=== PATIENT | male | born 1980 | race Caucasian/White ===

== ENCOUNTER 2023-09-07 10:53 | Emergency (ER) | payer SELFPAY ==
[2023-09-07] VITALS (51 sets, daily range): BP systolic 127–172; BP diastolic 82–106; PULSE 58–96; RESP 0–16; TEMP 37.1; O2SAT 100
--- NOTE | 2023-09-07 | DI.CT_ITS ---
Exam(s) CT BRAIN CTA EXAM: CT BRAIN CTA CLINICAL HISTORY: intracranial hemorrhage. TECHNIQUE: Imaging Protocol: Axial CT angiography was performed with multi-slice acquisition and mu lti-planar and/or 3D reconstructions. CONTRAST MATERIAL: Intravenous: Omnipaque 350 contrast volume:85 mL COMPARISON: CT CT HEAD WO from 09/07/2023 FINDINGS: CT Head W: Ventricles and Extra axial spaces: Small amount of intraventricular hemorrhage in the occipital horns of the lateral ventricles. Hemorrhage: The hemorrhage involving the medial aspect of the left temporal lobe, left occipital lobe , spot and splenium is again seen. There is again seen intraventricular hemorrhage in the occipital horns of both lateral ventricles. Cerebral parenchyma: See the above section under hemorrhage. Midline shift: None. Brainstem/Cerebellum: Normal. Calvarium: Normal. Visualized Paranasal sinuses/Mastoids: Clear. Soft Tissues: Unremarkable. Enhancement: Unremarkable. CTA Brain W: Internal Carotid Arteries: No aneurysm, occlusion or significant stenosis. Anterior Cerebral Arteries: Right: No aneurysm, occlusion or significant stenosis. Left: No aneurysm, occlusion or significant stenosis. Middle Cerebral Arteries: Right: No aneurysm, occlusion or significant stenosis. Left: No aneurysm, occlusion or significant stenosis. Posterior cerebral Arteries: Right: No aneurysm, occlusion or significant stenosis. Left: No aneurysm, occlusion or significant stenosis. Vertebral Arteries: Right: No aneurysm, occlusion or significant stenosis. Left: No aneurysm, occlusion or significant stenosis. Basilar Artery: No aneurysm, occlusion or significant stenosis. Venogram: The intracranial venogram is unremarkable. No evidence of a venous thrombosis. IMPRESSION: 1. No evidence of large vessel occlusion or significant stenosis on the CT angiography of the head. 2. Normal intracranial venogram. 3. Findings were discussed with Dr. Ramires at 3:18 p.m. on 09/07/2023. RADIATION DOSE DELIVERED: Total DLP DATA REPOSITORY: All CT scans at this facility are submitted to the National Radiology Data Registry (NRDR) Dose Index Registry (DIR) with the [employer] (A[employer]). RADIATION OPTIMIZATION: All CT scans at this facility use at least one of these dose optimization te chniques: automated exposure control; mA and/or kV adjustment per patient size (includes targeted exa ms where dose is matched to clinical indication); or iterative reconstruction.
--- NOTE | 2023-09-07 11:00 | RT.EKG_ITS ---
APPROVED REPORT Exam: Resting ECG Reason for Exam: chest pressure Patient Location: E HR:69 bpm ECG Measurements Heart Rate 69 AXIS WA 143 P 49 QRSd 99 QRS 5 QT 402 T 31 QTc 430 Conclusion Sinus rhythm...normal P axis, V-rate 60- 99
[2023-09-07 11:23] LABS: Abs Immature Grans 0.01 10^3/uL (0.0-0.06); Absolute Basophil Count 0.03 10^3/uL (0.0-0.2); Absolute Eosinophil Count 0.02 10^3/uL (0.0-0.7); Absolute Lymphocyte Count 1.04 10^3/uL (1.2-3.4); Absolute Monocyte Count 0.49 10^3/uL (0.1-0.8); Absolute Neutrophil Count 2.98 10^3/uL (1.2-6.7); Basophils % 0.7; Eosinophils % 0.4; HCT 43.8 % (40.0-50.0); HGB 15.3 g/dL (13.5-17.5); Immature Grans % 0.2; Lymphocytes % 22.8; MCH 32.3 pg (27.0-33.0); MCHC 34.9 % (32.0-36.0); MCV 93 fL (80-95); MPV 8.1 fL (8.0-11.0); Monocytes % 10.7; Neutrophils % 65.2; Platelet Count 171 10^3/uL (130-400); RBC 4.73 10^6/uL (4.36-5.78); RDW 11.3 % (11.8-14.1); RDW-SD 38.7 fL; WBC 4.57 10^3/uL (4.4-10.8)
[2023-09-07 11:34] LABS: Ammonia < 10 umol/L (11-32)
--- NOTE | 2023-09-07 11:45 | DI.CT_ITS ---
Exam(s) CT HEAD WO EXAM: CT HEAD WO CLINICAL HISTORY: headache, confusion. TECHNIQUE: Imaging Protocol: Axial computed tomography images with coronal and sagittal reformatted images were created and reviewed COMPARISON: No exams were available for comparison FINDINGS: Ventricles and Extra axial spaces: Normal in size and morphology for the patient's age. Please see be low under hemorrhage. Hemorrhage: There is acute hemorrhage seen involving the medial aspect of the left temporal lobe and the left occipital lobe including the splenium of the corpus callosum. There is extension into the v entricular system with hemorrhage seen in both the occipital horns of the lateral ventricles and the 3rd ventricle. Cerebral parenchyma: Please see above under hemorrhage. Midline shift: None. Brainstem/Cerebellum: Normal. Calvarium: Normal. Visualized Paranasal sinuses/Mastoids: Clear. Soft Tissues: Unremarkable. IMPRESSION: 1. Intraparenchymal and intraventricular hemorrhage as described above. No midline shift or mass eff ect. 2. Findings were discussed with Dr. Ramires at 12:30 p.m. on 09/07/2023. RADIATION DOSE DELIVERED: Total DLP DATA REPOSITORY: All CT scans at this facility are submitted to the National Radiology Data Registry (NRDR) Dose Index Registry (DIR) with the [employer] (ACR). RADIATION OPTIMIZATION: All CT scans at this facility use at least one of these dose optimization te chniques: automated exposure control; mA and/or kV adjustment per patient size (includes targeted exa ms where dose is matched to clinical indication); or iterative reconstruction.
[2023-09-07 11:47] LABS: ALT 62 U/L (16-63); AST 40 U/L (15-37); Albumin 4.5 g/dL (3.4-5.0); Alkaline Phosphatase 28 U/L (46-116); Anion Gap 10.1 mmol/L (3-11); BUN 7 mg/dL (7-18); Bilirubin, Total 0.6 mg/dL (0.2-1.0); CO2 26.9 mmol/L (21.0-32.0); CREATININE 0.8 mg/dL (0.70-1.30); Calcium 9.5 mg/dL (8.5-10.1); Chloride 102 mmol/L (98-107); Estimated GFR 112.61 (mL/min/1.73m2); Glucose 112 mg/dL (74-106); Magnesium 2.2 mg/dL (1.8-2.4); Potassium 3.1 mmol/L (3.5-5.1); Sodium 139 mmol/L (136-145); TSH (W/Ref FT4) 1.23 uIU/mL (0.36-3.74); Total Protein 8.2 g/dL (6.4-8.2); Troponin I < 50 ng/L (<or=60)
[2023-09-07 11:48] LABS: Bilirubin Negative (Negative); Blood Trace-intact (Negative); Clarity Clear (Clear); Glucose Negative (Negative); Ketones 15 mg/dL (Negative); Leukocyte Esterase Negative (Negative); Nitrite Negative (Negative); Specific Gravity 1.015 (1.005-1.025)
[2023-09-07 11:54] LABS: RBC 0-2 HPF (0-2); WBC Negative HPF (0-5)
[2023-09-07 11:55] LABS: Bacteria Negative HPF (Negative); C & S Indicated? No; Casts Negative LPF (Negative); Crystals Few Amorphous HPF (Negative); Epithelial Cells Rare HPF (Negative); Mucus Negative (Negative)
[2023-09-07] MEDS: LORazepam 2 MG/ML VIAL 0.5 MG IVP ×2 (11:55→18:31)
[2023-09-07 12:01] LABS: *AMPHETAMINES SCREEN URINE Negative (Negative); *BARBITURATES SCREEN URINE Negative (Negative); *BENZODIAZEPINES SCREEN URINE Negative (Negative); Cannabinoids THC Negative (Negative); Cocaine Screen,Urine Negative (Negative); METHADONE URINE SCREEN Negative (Negative); OPIATES URINE SCREEN Negative (Negative)
[2023-09-07 12:09] LABS: Tricyclic Antidepressants Negative (Negative)
--- NOTE | 2023-09-07 12:16 | ED.GENADUL_ITS ---
Discharge Plan Disposition Patient Disposition: Transfer-Acute Inpatient Care Specific Acute Inpt Facility: [facility] Discharge Details Chief Complaint: GenMedical Clinical Impression: Intracranial hemorrhage Primary Care Provider: Unknown,Unknown ED Provider: Josh Ramires Home Meds and New Rx's Prescriptions: No Action omeprazole 20 mg capsule,delayed release(DR/EC) 20 mg PO DAILY perindopril arginin-amlodipine 7-5 mg tablet 1 tab PO DAILY Medical Decision Making 1223 --43-year-old male with history of hypertension, here with headaches and altered mental status over the past 3 days. Patient is severely hypertensive despite taking his prescribed antihypertensive. Initial screening labs reviewed and mild hypokalemia noted. I will give potassium chloride. Consider intracranial hemorrhage versus hypertensive emergency. Plan to obtain CT and CTA of the brain. 1235 -- I spoke with radiology who notes CT of the head reveals intracranial hemorrhage left corpus callosum extending into the ventricle, no mass effect. CTA was discontinued. I will initiate nicardipine drip. 1245 --I called [facility] transfer center to request emergent transfer and awaiting callback. 1345 -- I spoke with a very pleasant neurosurgeon at [facility], discussed ED presentation and course, she will not accept the patient in transfer but does recommend getting a CTA, CTV, INR, starting Keppra 1 g, maintaining systolic blood pressure less than 140, and consulting neurology. Awaiting callback from neurology. 1415--Received call back from [facility] transfer center and Dr. Mayfield, on-call neurologist, to accept patient in transfer. 1630 --Still awaiting bed confirmation. Titrating nicardipine drip to maintain systolic blood pressure under 140. Lab Data Lab results reviewed: Yes I reviewed the patient's lab results. Labs: Laboratory Tests Range/Units 09/07/23 09/07/23 11:13 11:32 WBC (4.4-10.8) 10^3/uL 4.57 RBC (4.36-5.78) 10^6/uL 4.73 Hgb (13.5-17.5) g/dL 15.3 Hct (40.0-50.0) % 43.8 MCV (80-95) fL 93 MCH (27.0-33.0) pg 32.3 MCHC (32.0-36.0) % 34.9 RDW (11.8-14.1) % 11.3 L Plt Count (130-400) 10^3/uL 171 MPV (8.0-11.0) fL 8.1 Immature Gran % 0.2 Neutrophils % 65.2 Lymphocytes % 22.8 Monocytes % 10.7 Eosinophils % 0.4 Basophils % 0.7 Nucleated RBC % (0.0-0.3) % 0.0 Absolute Neutrophils (1.2-6.7) 10^3/uL 2.98 Absolute Lymphocytes (1.2-3.4) 10^3/uL 1.04 L Absolute Monocytes (0.1-0.8) 10^3/uL 0.49 Absolute Eosinophils (0.0-0.7) 10^3/uL 0.02 Absolute Basophils (0.0-0.2) 10^3/uL 0.03 Sodium (136-145) mmol/L 139 Potassium (3.5-5.1) mmol/L 3.1 L Chloride (98-107) mmol/L 102 Carbon Dioxide (21.0-32.0) mmol/L 26.9 Anion Gap (3-11) mmol/L 10.1 BUN (7-18) mg/dL 7 Creatinine (0.70-1.30) mg/dL 0.8 Est GFR (CKD-EPI 2020) (mL/min/1.73m2) 112.61 Glucose (74-106) mg/dL 112 H Calcium (8.5-10.1) mg/dL 9.5 Magnesium (1.8-2.4) mg/dL 2.2 Total Bilirubin (0.2-1.0) mg/dL 0.6 AST (15-37) U/L 40 H ALT (16-63) U/L 62 Alkaline Phosphatase (46-116) U/L 28 L Ammonia (11-32) umol/L < 10 L Troponin I (<or=60) ng/L < 50 Total Protein (6.4-8.2) g/dL 8.2 Albumin (3.4-5.0) g/dL 4.5 TSH (0.36-3.74) uIU/mL 1.23 Urine Color (Yellow) Yellow Urine Clarity (Clear) Clear Urine pH (5-8) 8.0 Ur Specific [place] (1.005-1.025) 1.015 Urine Protein (Negative) mg/dL Negative Urine Ketones (Negative) mg/dL 15 H Urine Blood (Negative) Trace-intact H Urine Nitrite (Negative) Negative Urine Bilirubin (Negative) Negative Urine Urobilinogen (Up to 0.2) mg/dL 1.0 H Ur Leukocyte Esterase (Negative) Negative Urine RBC (0-2) HPF 0-2 Urine WBC (0-5) HPF Negative Ur Epithelial Cells (Negative) HPF Rare Urine Crystals (Negative) HPF Few Amorphous Urine Bacteria (Negative) HPF Negative Urine Casts (Negative) LPF Negative Urine Mucus (Negative) Negative Ur Culture Indicated? No Urine Glucose (Negative) mg/dL Negative Urine Opiates Screen (Negative) Negative Urine Methadone Screen (Negative) Negative Ur Barbiturates Screen (Negative) Negative Ur Tricyclics Screen (Negative) Negative Ur Amphetamines Screen (Negative) Negative U Benzodiazepines Scrn (Negative) Negative Urine Cocaine Screen (Negative) Negative Ur THC Screen (Negative) Negative HPI General Mode of arrival: ambulatory . Date/Time Provider Initiated Documentation: 09/07/23 11:08 . Limitations to Documentation: no limitations . Information obtained by: patient . HPI Narrative: 43-year-old male with history of hypertension presents with chief complaint of confusion. Patient notes Thursday he had sudden onset of intense frontal headache that was initially severe and then improved and resolved. He had confusion Thursday as well was noted to be disoriented and forgetful. Thursday he again had an intense frontal headache and this lasted all day. Thursday he had improved he adache and discomfort localized in the back of his head and neck. Today he is headache is mild rated 1/10. He continues to have intermittent confusion and forgetfulness. Patient has been taking his antihypertensive as prescribed. Patient denies associated fever, visual change, numbness, tingling or weakness. Related Data Home Medications Medication Instructions Recorded Confirmed omeprazole 20 mg capsule,delayed 20 mg PO DAILY 09/07/23 09/07/23 release perindopril arginine 7 1 tab PO DAILY 09/07/23 09/07/23 mg-amlodipine 5 mg tablet Allergies Allergy/AdvReac Type Severity Reaction Status Date / Time No Known Allergies Allergy Unverified 09/07/23 12:26 General Stated Complaint: GenMedical SHAUNNA: 3 Review of Systems All systems reviewed & are unremarkable except as noted in HPI and below Constitutional Constitutional: Denies fever(s), Reports headache(s) and Denies weakness ENT Ears, Nose, Mouth, and Throat: Reports headache(s) Cardiovascular Cardiovascular: Denies chest pain and Denies dyspnea Respiratory Respiratory: Denies cough and Denies dyspnea Musculoskeletal Musculoskeletal: Denies numbness Neurologic Neurologic: Reports as per HPI, Denies abnormal speech, Reports confusion, Reports headache(s), Denies numbness, Denies sensory deficit and Denies weakness Psychiatric Psychiatric: Reports confusion PFSH All Active Problems (Updated 09/07/23 @ 16:35 by Josh Ramires MD) Intracranial hemorrhage (Acute) Social History Smoking/Tobacco Use Status: Never Smoking risk assessment performed?: Yes Alcohol Intake: current Alcohol Intake frequency: a few times a week Drug use: Rarely Substance use type: marijuana Housing: house Do you feel safe at home: Yes Do you feel safe in your relationship?: Yes Exam Const General: cooperative and no acute distress HENMT Head: normocephalic and atraumatic Mouth: moist mucous membranes Eyes Conjunctivae: normal conjunctivae Sclera: normal sclerae EOM: EOM intact bilaterally Resp Auscultation: clear to auscultation bilaterally, no rales, no rhonchi and no wheezes Cardio Rate: regular rate and not tachycardic Rhythm: regular rhythm GI Palpation: soft, not firm, no guarding, no masses, not rigid and nontender Skin General skin exam: no rashes or lesions noted Neuro General: patient alert, patient awake, patient oriented x3 and tone normal Cranial Nerves: CN's II-XI intact bilaterally Cognition: abnormal cognition (some forgetfulness while providing history) Speech: speech normal Motor: strength 5/5 throughout Sensory Exam: no sensory deficits noted Extrem General: no edema Psych Appearance: grossly normal Mental Status: mental status grossly normal Course Vital Signs Vital signs: Vital Signs Temperature 37.1 C 09/07/23 10:56 Pulse 78 09/07/23 10:56 Respiratory Rate 16 09/07/23 10:56 Blood Pressure 172/104 H 09/07/23 10:56 Pulse Oximetry 100 09/07/23 10:56 Temperature 37.1 C 09/07/23 10:56 Temperature Source Temporal Artery Scan 09/07/23 10:56 Pulse 78 09/07/23 10:56 Respiratory Rate 16 09/07/23 11:57 Respiratory Effort Normal, Non-Labored 09/07/23 11:57 Respiratory Depth Normal 09/07/23 11:57 Respiratory Pattern Normal 09/07/23 11:57 Blood Pressure 172/104 H 09/07/23 10:56 Blood Pressure Position Sitting 09/07/23 10:56 Pulse Oximetry 100 09/07/23 10:56 Oxygen Delivery Method Room Air 09/07/23 10:56 Oxygen Flow Rate 0 09/07/23 10:56 Pain Level 0 09/07/23 10:56 Lab/Test Results Lab/Test Results: Laboratory Tests Range/Units 09/07/23 09/07/23 11:13 11:32 WBC (4.4-10.8) 10^3/uL 4.57 RBC (4.36-5.78) 10^6/uL 4.73 Hgb (13.5-17.5) g/dL 15.3 Hct (40.0-50.0) % 43.8 MCV (80-95) fL 93 MCH (27.0-33.0) pg 32.3 MCHC (32.0-36.0) % 34.9 RDW (11.8-14.1) % 11.3 L Plt Count (130-400) 10^3/uL 171 MPV (8.0-11.0) fL 8.1 Immature Gran % 0.2 Neutrophils % 65.2 Lymphocytes % 22.8 Monocytes % 10.7 Eosinophils % 0.4 Basophils % 0.7 Nucleated RBC % (0.0-0.3) % 0.0 Absolute Neutrophils (1.2-6.7) 10^3/uL 2.98 Absolute Lymphocytes (1.2-3.4) 10^3/uL 1.04 L Absolute Monocytes (0.1-0.8) 10^3/uL 0.49 Absolute Eosinophils (0.0-0.7) 10^3/uL 0.02 Absolute Basophils (0.0-0.2) 10^3/uL 0.03 Sodium (136-145) mmol/L 139 Potassium (3.5-5.1) mmol/L 3.1 L Chloride (98-107) mmol/L 102 Carbon Dioxide (21.0-32.0) mmol/L 26.9 Anion Gap (3-11) mmol/L 10.1 BUN (7-18) mg/dL 7 Creatinine (0.70-1.30) mg/dL 0.8 Est GFR (CKD-EPI 2020) (mL/min/1.73m2) 112.61 Glucose (74-106) mg/dL 112 H Calcium (8.5-10.1) mg/dL 9.5 Magnesium (1.8-2.4) mg/dL 2.2 Total Bilirubin (0.2-1.0) mg/dL 0.6 AST (15-37) U/L 40 H ALT (16-63) U/L 62 Alkaline Phosphatase (46-116) U/L 28 L Ammonia (11-32) umol/L < 10 L Troponin I (<or=60) ng/L < 50 Total Protein (6.4-8.2) g/dL 8.2 Albumin (3.4-5.0) g/dL 4.5 TSH (0.36-3.74) uIU/mL 1.23 Urine Color (Yellow) Yellow Urine Clarity (Clear) Clear Urine pH (5-8) 8.0 Ur Specific [place] (1.005-1.025) 1.015 Urine Protein (Negative) mg/dL Negative Urine Ketones (Negative) mg/dL 15 H Urine Blood (Negative) Trace-intact H Urine Nitrite (Negative) Negative Urine Bilirubin (Negative) Negative Urine Urobilinogen (Up to 0.2) mg/dL 1.0 H Ur Leukocyte Esterase (Negative) Negative Urine RBC (0-2) HPF 0-2 Urine WBC (0-5) HPF Negative Ur Epithelial Cells (Negative) HPF Rare Urine Crystals (Negative) HPF Few Amorphous Urine Bacteria (Negative) HPF Negative Urine Casts (Negative) LPF Negative Urine Mucus (Negative) Negative Ur Culture Indicated? No Urine Glucose (Negative) mg/dL Negative Urine Opiates Screen (Negative) Negative Urine Methadone Screen (Negative) Negative Ur Barbiturates Screen (Negative) Negative Ur Tricyclics Screen (Negative) Negative Ur Amphetamines Screen (Negative) Negative U Benzodiazepines Scrn (Negative) Negative Urine Cocaine Screen (Negative) Negative Ur THC Screen (Negative) Negative Critical Care Time Critical Care Time Critical Care Time: Yes Total Critical Care Time: 65 Attestation: I spent greater than 65 minutes addressing this patient's immediate life threats. Please see MDM section of note. This time was spent engaged in work directly related to the patient's care, exclusive of separate procedures, and failure to initiate these interventions would have likely resulted in clinically significant or life threatening deterioration in the patient's condition. PAWSS Have you Been Recently Intoxicated or Drunk Within the Last 30 days?: No Have you Ever Experienced Previous Episodes of Alcohol Withdrawal?: No Have you ever Experienced Withdrawal Seizures?: No Have you ever Experienced Delirium Tremens(DT)s?: No Have you ever undergone Alcohol Rehabilitation Treatment (i.e, inpt ot outpatient treatment programs)?: No Have you ever Experienced Blackouts?: No Have you ever Combined Alcohol with other Downers within the last 90 days?: No Have you ever Combined Alcohol with any other Substance of Abuse during the last 90 days?: No Result: 0
[2023-09-07] MEDS: Potassium Chloride 20 MEQ TABCR PO (12:40)
[2023-09-07] MEDS: levETIRAcetam 1,000 MG in Normal Saline 100 ML 400 MG IVPB (13:54)
[2023-09-07 14:12] LABS: Prothrombin Time 9.9 sec (9.1-11.1)
[2023-09-07] MEDS: Normal Saline - Diluent 50 ML VIAL IJ (14:45)
[2023-09-07] MEDS: Omnipaque 350 MG/ML 100 ML BTL 85 ML IJ (14:48)
[2023-09-07] MEDS: niCARdipine 25 MG in Normal Saline 240 ML 50 MG IV (16:21)
== END 2023-09-07 18:33 | disposition short-term general hospital (02) ==
PROVIDERS: Student in an Organized Health Care Education/Training Program; Emergency Provider Emergency Medicine
DX: I62.9 Nontraumatic intracranial hemorrhage, unspecified (principal); I10 Essential (primary) hypertension; E87.6 Hypokalemia
CPT/HCPCS: 36415; 70496; 80053; 80307; 93005; 96365; 96375; 99285; 70450; 81003; 81015; 82140; 83735; 84443; 84484; 85025; 85610; 93010; J1953; J2060; J3490

== ENCOUNTER 2024-02-19 12:52 | Outpatient (REF) | payer OTHER, SELFPAY ==
[2024-02-19 14:49] LABS: Anion Gap 14.1 mmol/L (3-11); BUN 8 mg/dL (7-18); CO2 26.9 mmol/L (21.0-32.0); CREATININE 0.7 mg/dL (0.70-1.30); Calcium 9.7 mg/dL (8.5-10.1); Chloride 104 mmol/L (98-107); Estimated GFR 117.25 (mL/min/1.73m2); Glucose 90 mg/dL (74-106); Potassium 3.9 mmol/L (3.5-5.1); Sodium 145 mmol/L (136-145)
== END 2024-02-19 12:53 | disposition home or self-care (01) ==
LOC: NCHCN 12:52
PROVIDERS: Visit Provider Family Medicine
DX: I10 Essential (primary) hypertension (principal)
CPT/HCPCS: 80048

== ENCOUNTER 2024-08-07 15:50 | Emergency (ER) | payer OTHER, SELFPAY ==
[2024-08-07 15:51] VITALS: BP 155/93; PULSE 117; RESP 16; TEMP 36.6; O2SAT 98
--- NOTE | 2024-08-07 16:11 | W.ED.GENAD ---
Discharge Plan Disposition Patient Disposition: Home Condition: Good Discharge Details Clinical Impression: Periorbital ecchymosis Primary Care Provider: Unknown,Unknown ED Provider: Verna Collier Home Meds and New Rx's Prescriptions: Continued amlodipine 5 mg tablet 5 mg PO DAILY lisinopril 40 mg tablet 40 mg PO DAILY aspirin [Adult Low Dose Aspirin] 81 mg tablet,delayed release (DR/EC) 81 mg PO DAILY PRN omeprazole 20 mg capsule,delayed release(DR/EC) 20 mg PO DAILY Discharge Instructions Additional Instructions: Please call your neurosurgery team and primary care provider first thing tomorrow morning to let them know you are seen in the emergency department and to schedule follow-up appointments as needed. Your labs are all reassuring today. Return to emergency care if develop new headache, dizziness, vision changes, nausea/vomiting, balance problems, behavior change, or if you are very worried and need to be rechecked again immediately. Referrals: Rosi Valencia [ CONSULTING PHYSICIAN] - [facility] General Date/Time Provider Initiated Documentation: 08/07/24 15:59. [facility] Narrative: Sachin is a 44-year-old male with history of hypertension and cerebral aneurysm repaired approximately 1 year ago who presents to the emergency department today for evaluation of under eye bruising. He reports that he was having intercourse with his when his noticed that he developed bruising under his eye after orgasm. He denies any head injury, headache, dizziness, vision changes, eye pain, easy bruising/bleeding, other rashes, new congestion, sore throat, chest pain, shortness of breath, blood in stool or urine. He is not on any anticoagulation. He does admit to recent stressors/anxiety and a history of panic attacks, says he has not had any in the last couple days. Has a couple of alcoholic drinks daily, more on the weekends. Denies history of liver disease, kidney disease, or bleeding disorder. Physical exam remarkable for periorbital ecchymosis under the right eye. Patient is alert and oriented, appears nervous but in no acute distress. No unusual ecchymosis or bleeding under eyelid. PERRL, EOMs intact. Normal speech. Easy work of breathing. No unusual bruising or bleeding areas noted. Cranial nerves II through XII intact as tested. 5 out of 5 muscle strength upper and lower extremities, sensation intact. Normal finger finger, finger-nose, Romberg, heel toe, gait D/dx includes but is not limited to: Burst blood vessel, coagulopathy, low suspicion for intracranial hemorrhage in absence of neurological symptoms/deficit I independently interpreted the following tests: CBC, CMP, PT/INR, and PTT all reassuring. I did discuss possibility of CTA to further evaluate, however Sachin just had 1 done a week ago while at neurosurgery appointment. We discussed risk versus benefits of CTA, he declines it at this time but is agreeable to returning if any new symptoms. Overall workup today reassuring. Advise close follow-up with PCP and neurosurgery for further evaluation as needed. Advised that he may return to the emergency department at any time for CTA if he wishes. Educated on symptoms to look out for. Reviewed red flags indicating need for return to emergency care. He voices agreement with plan of care. Related Data Home Medications ?Medication ?Instructions ?Recorded ?Confirmed omeprazole 20 mg capsule,delayed 20 mg PO DAILY 09/07/23 08/07/24 release amlodipine 5 mg tablet 5 mg PO DAILY 05/23/24 08/07/24 aspirin 81 mg tablet,delayed 81 mg PO DAILY PRN 05/23/24 08/07/24 release (Adult Low Dose Aspirin) lisinopril 40 mg tablet 40 mg PO DAILY 05/23/24 08/07/24 Allergies Allergy/AdvReac Type Severity Reaction Status Date / Time No Known Allergies Allergy Verified 08/07/24 15:56 General Stated Complaint: EyeProblem SHAUNNA: 4 Review of Systems Narrative: see HPI Exam Const General: cooperative, healthy appearing, comfortable, no acute distress, well developed and well groomed Nutritional Appearance: average body habitus Orientation: alert and oriented x3 [facility] Head: normal to inspection, normocephalic and atraumatic Ears: hearing grossly normal bilaterally General nose exam: external nose normal Face and sinus: face symmetric Mouth: oral mucosae normal Eyes Periorbital: periorbital findings abnormal right periorbital ecchymosis (inferior to R eye) Eyelids: eyelids normal Conjunctivae: conjunctivae normal Sclera: sclerae normal Pupils: PERRL EOM: EOM intact bilaterally Neck Neck: normal visual inspection and full ROM Resp Effort & Inspection: normal respiratory effort and able to speak in complete sentences Neuro General: patient alert, patient oriented x3, gait normal, tone normal, moves all extremities and no focal motor deficits Cranial Nerves: CN's II-XI intact bilaterally, PERRL, EOM intact bilaterally, no nystagmus, facial strength normal and able to rotate head bilaterally Cognition: normal cognition Speech: speech normal Gait: normal gait Motor: muscle tone normal throughout and strength 5/5 throughout Sensory Exam: no sensory deficits noted Coordination: [id number] test normal, Romberg test normal, tandem gait normal, Does not sway with eyes open and rapid alternating movement UE normal Course Vital Signs Vital signs: Vital Signs Temperature 36.6 C 08/07/24 15:51 Pulse 117 H 08/07/24 15:51 Respiratory Rate 16 08/07/24 15:51 Blood Pressure 155/93 H 08/07/24 15:51 Pulse Oximetry 98 08/07/24 15:51 Temperature 36.6 C 08/07/24 15:51 Temperature Source Temporal Artery Scan 08/07/24 15:51 Pulse 117 H 08/07/24 15:51 Respiratory Rate 16 08/07/24 15:51 Blood Pressure 155/93 H 08/07/24 15:51 Blood Pressure Position Sitting 08/07/24 15:51 Pulse Oximetry 98 08/07/24 15:51 Oxygen Delivery Method Room Air 08/07/24 15:51 Oxygen Flow Rate 0 08/07/24 15:51 Pain Level 0 08/07/24 15:51 Medical Decision Making Quality:SDOH Health Related Social Needs: No Data to Display PFSH All Active Problems (Updated 08/07/24 @ 17:42 by Verna Burkett) Periorbital ecchymosis (Acute) Social History Smoking/Tobacco Use Status: Never Smoking risk assessment performed?: Yes Alcohol Intake: current Alcohol Intake frequency: a few times a week Drug use: Rarely Substance use type: marijuana Housing: house Do you feel safe at home: Yes Do you feel safe in your relationship?: Yes
[2024-08-07 16:26] LABS: HCT 46.1 % (40.0-50.0); HGB 15.9 g/dL (13.5-17.5); MCH 32.5 pg (27.0-33.0); MCHC 34.5 % (32.0-36.0); MCV 94 fL (80-95); MPV 8.4 fL (8.0-11.0); Platelet Count 175 10^3/uL (130-400); RBC 4.89 10^6/uL (4.36-5.78); RDW 11.8 % (11.8-14.1); WBC 4.95 10^3/uL (4.4-10.8)
[2024-08-07 16:41] LABS: INR 0.9 (0.9-1.1); PTT Activated 24.1 sec (23.6-32.8); Prothrombin Time 9.2 sec (9.1-11.1)
[2024-08-07 16:42] LABS: ALT 68 U/L (16-63); AST 76 U/L (15-37); Albumin 4.5 g/dL (3.4-5.0); Alkaline Phosphatase 40 U/L (46-116); Anion Gap 12.7 mmol/L (3-11); BUN 10 mg/dL (7-18); Bilirubin, Total 0.68 mg/dL (0.2-1.0); CO2 25.3 mmol/L (21.0-32.0); CREATININE 0.7 mg/dL (0.70-1.30); Calcium 9.7 mg/dL (8.5-10.1); Chloride 105 mmol/L (98-107); Estimated GFR 116.52 (mL/min/1.73m2); Glucose 92 mg/dL (74-106); Potassium 4.2 mmol/L (3.5-5.1); Sodium 143 mmol/L (136-145); Total Protein 8.8 g/dL (6.4-8.2)
[2024-08-07 17:03] VITALS: BP 128/89; PULSE 109; RESP 12; TEMP 36.9; O2SAT 98
[2024-08-07] MEDS: Omnipaque 350 MG/ML 100 ML BTL IJ (17:38)
[2024-08-07] MEDS: Normal Saline - Diluent 50 ML VIAL IJ (17:40)
[2024-08-07 17:41] VITALS: PULSE 95
== END 2024-08-07 18:06 | disposition home or self-care (01) ==
PROVIDERS: Emergency Provider Nurse Practitioner Family
DX: S00.11XA Contusion of right eyelid and periocular area, initial encounter (principal); X58.XXXA Exposure to other specified factors, initial encounter; Z86.79 Personal history of other diseases of the circulatory system
CPT/HCPCS: 80053; 85027; 99282; 85610; 85730; 99283; J3490

== ENCOUNTER 2025-04-13 21:10 | Outpatient (REF) | payer SELFPAY ==
[2025-04-13 21:37] LABS: Anion Gap 12.3 mmol/L (3-11); BUN 7 mg/dL (7-18); CO2 24.7 mmol/L (21.0-32.0); CREATININE 0.8 mg/dL (0.70-1.30); Calcium 9.1 mg/dL (8.5-10.1); Calculated LDL 62 mg/dL (<100); Chloride 105 mmol/L (98-107); Cholesterol 173 mg/dL (<200); Estimated GFR 111.22 (mL/min/1.73m2); Glucose 99 mg/dL (74-106); HDL Cholesterol 78 mg/dL (>or=40); Potassium 3.7 mmol/L (3.5-5.1); Sodium 142 mmol/L (136-145); Triglyceride 168 mg/dL (<150)
[2025-04-13 21:38] LABS: Vitamin B12 > 2000 pg/mL (193-986)
== END 2025-04-13 21:11 | disposition home or self-care (01) ==
LOC: NCHCN 21:10
PROVIDERS: Visit Provider Family Medicine
DX: I10 Essential (primary) hypertension (principal); Z13.220 Encounter for screening for lipoid disorders; K21.9 Gastro-esophageal reflux disease without esophagitis
CPT/HCPCS: 80048; 80061; 82607

== ENCOUNTER 2025-05-06 16:22 | Emergency (ER) | payer BC, SELFPAY ==
[2025-05-06] VITALS (20 sets, daily range): BP systolic 127–151; BP diastolic 81–96; PULSE 113–127; RESP 9–25; TEMP 36.6; O2SAT 91–98
--- NOTE | 2025-05-06 16:15 | DI.CT_ITS ---
Exam(s) CT HEAD WO EXAM: CT HEAD WO CLINICAL HISTORY: altered mentation. TECHNIQUE: Imaging Protocol: Axial computed tomography images with coronal and sagittal reformatted images were created and reviewed COMPARISON: CT CT BRAIN CTA from 09/07/[address] HEAD WO from 09/07/2023 FINDINGS: There are no skull fractures. There is no fluid in the visualized paranasal sinuses and mastoid air cells.. There is presentlyx no evidence of intracranial hemorrhage, as was evident on prior CT scans. However, there is a metallic density in the brain causing abundant streak artifact, this measuring 9 x 7.5 mm located left of center lateral to the midbrain. This is probably from prior interventional treatment. Size of the ventricles is unchanged and there is no blood within the ventricular system nor within the basal cisterns. IMPRESSION: No acute intracranial findings on this noninfused CT scan of the brain. Metallic density in left side of the brain is most probably related to prior interventional treatment for ruptured aneurysm which was the etiology of the previous brain hemorrhage seen on 09/07/2023 CT scan. Report called by myself to ER provider 05/06/2025 at 4:55 p.m. RADIATION DOSE DELIVERED: 922.9mGy.cm Total DLP DATA REPOSITORY: All CT scans at this facility are submitted to the National Radiology Data Registry (NRDR) Dose Index Registry (DIR) with the [employer] (ACR). RADIATION OPTIMIZATION: All CT scans at this facility use at least one of these dose optimization techniques: automated exposure control; mA and/or kV adjustment per patient size (includes targeted exams where dose is matched to clinical indication); or iterative reconstruction.
--- NOTE | 2025-05-06 16:45 | RT.EKG_ITS ---
APPROVED REPORT Exam: Resting ECG Reason for Exam: baseline/screening Patient Location: E HR:123 bpm ECG Measurements Heart Rate 123 AXIS TN 149 P 43 QRSd 98 QRS -12 QT 307 T 44 QTc 439 Conclusion Sinus tachycardia...rate> 99 ST elev, probable normal early repol pattern...ST elevation, age<55 No Occlusion [place]
--- NOTE | 2025-05-06 17:03 | DI.CT_ITS ---
Exam(s) CT BRAIN NECK CTA EXAM: CT BRAIN NECK CTA CLINICAL HISTORY: dysmetria, gait instability. TECHNIQUE: Imaging Protocol: Axial CT angiography was performed with multi- slice acquisition and multi-planar and/or 3D reconstructions. CONTRAST MATERIAL: Intravenous: Omnipaque 350 Contrast volume:structured data in ml COMPARISON: CT CT HEAD WO from 05/06/2025 FINDINGS: CTA Neck W: Aortic arch anatomy: The aortic arch anatomy is conventional and there is no significant stenosis at the origin of the great vessels off of the aortic arch. No intimal flap evident. Anterior circulation: Both common carotid arteries ascend with normal luminal diameters. At the level the carotid bulbs and proximal internal carotid arteries there is minimal plaque without hemodynamically significant stenosis evident. Posterior circulation: Both vertebral arteries originate in conventional fashion off of the subclavian arteries and there is no obvious stenosis at the origin of the vertebral arteries. Both vertebral arteries exhibit normal luminal diameters within the foramen transversarium. Both vertebral arteries contribute to the formation of the basilar artery at the skull base. CTA Brain W: Anterior circulation: Both internal carotid arteries are patent in the skull base-carotid canals as well as within the cavernous sinuses. The supraclinoid aspects of the ICAs are patent. Both A1 segments are patent as are the anterior cerebral arteries and there is no evidence of aneurysm at the level of the anterior communicating artery. Both middle cerebral arteries are patent with no evidence of significant stenosis nor intraluminal thrombus. There also no aneurysms of these vessels. Posterior circulation: The basilar artery ascends in the midline. Distally it gives off patent bilateral superior cerebellar arteries. Above this level basilar artery terminates with a patent right posterior cerebral artery. The left posterior cerebral artery is patent approximately but not opacified distal to this where the metallic density-probable embolization coils are located. There is no evidence of aneurysm at the tip of the basilar artery nor elsewhere in the [id number]. CT BRAIN: There is no evidence of intracranial hemorrhage, mass effect, or shift of midline structures. There are no extra-axial fluid collections. Ventricles are not enlarged or shifted. There are no ring enhancing lesions in the brain and no abnormal meningeal enhancement. IMPRESSION: 1. Patent carotid arteries in the neck. No hemodynamically significant stenosis. No dissection 2. Patent vertebral arteries. No stenosis. No dissection 3. Patent intracranial anterior circulation. In the posterior circulation the left posterior cerebral artery appears occluded a few cm distal to its origin and this is most probably by the metallic artifact/neurointerventional material. Report called by myself to ER provider 05/06/2025 at 6:15 p.m. RADIATION DOSE DELIVERED: 1,681.16mGy.cm Total DLP DATA REPOSITORY: All CT scans at this facility are submitted to the National Radiology Data Registry (NRDR) Dose Index Registry (DIR) with the [employer] (ACR). RADIATION OPTIMIZATION: All CT scans at this facility use at least one of these dose optimization techniques: automated exposure control; mA and/or kV adjustment per patient size (includes targeted exams where dose is matched to clinical indication); or iterative reconstruction.
--- NOTE | 2025-05-06 17:05 | W.ED.GENAD ---
Discharge Plan Disposition Patient Disposition: Home Condition: Stable Discharge Details Clinical Impression: Change in mental status Primary Care Provider: Rosi Valencia ED Provider: Tam Nguyen Home Meds and New Rx's Prescriptions: Continued amlodipine 5 mg tablet 5 mg PO DAILY lisinopril 40 mg tablet 40 mg PO DAILY aspirin [Adult Low Dose Aspirin] 81 mg tablet,delayed release (DR/EC) 81 mg PO DAILY PRN clonazepam [Klonopin] 0.5 mg tablet 1 mg PO DAILY PRN albuterol sulfate [Ventolin HFA] 90 mcg/actuation HFA aerosol inhaler 2 puff inhalation Q6H PRN zolpidem 10 mg tablet 10 mg PO QHS PRN escitalopram oxalate 10 mg tablet 10 mg PO DAILY Wegovy 0.5 mg/0.5 mL pen injector 0.5 mg subcut QWEEK Rx Instructions: administer weeks 5 through 8 of therapy omeprazole 20 mg capsule,delayed release(DR/EC) 20 mg PO DAILY Discharge Instructions Additional Instructions: You were seen in the emergency department for your likely mild oversedation after taking both the zolpidem and Ativan during a panic attack and having some altered mentation per your family, your imaging and laboratory workup shows no acute findings, you were seen by [facility] teleneurology and they agree that you are not having any symptoms of stroke and do not recommend admission for MRI and other workup. Please try to eat well and stay hydrated, please return for any further episodes of altered mentation, significant headaches with altered mentation, tachycardia or arrhythmia, any other emergent concerns. Referrals: Rosi Valencia [Primary Care Provider, Medicine] HPI General Date/Time Provider Initiated Documentation: 05/06/25 16:23. HPI Narrative: 45 year-old male presents to ED today by POV/ambulating with a chief complaint of altered coordination, not acting himself per family with onset around 1330. Patient has history of ruptured cerebral aneurysm with coil. Patient states he has started a new anxiety medication a couple weeks ago, and was having an acute panic attack today around 1200- accidentally took a zolpidem when he meant to take his PRN ativan, but then took an ativan as well. Quality described as was having some gait abnormality, and it seemed like he was intoxicated but has had no alcohol today, no radiation to slurred speech, visual changes, motor weakness, fever, headache. Severity is described as significant per family. Palliating factors include nothing specific. Provoking factors include improved with time since 1329. Patient not anticoagulated. Related Data Home Medications ?Medication ?Instructions ?Recorded ?Confirmed omeprazole 20 mg capsule,delayed 20 mg PO DAILY 09/07/23 05/06/25 release amlodipine 5 mg tablet 5 mg PO DAILY 05/23/24 05/06/25 aspirin 81 mg tablet,delayed 81 mg PO DAILY PRN 05/23/24 05/06/25 release (Adult Low Dose Aspirin) lisinopril 40 mg tablet 40 mg PO DAILY 05/23/24 05/06/25 albuterol sulfate 90 mcg/actuation 2 puff inhalation Q6H PRN 04/19/25 05/06/25 aerosol inhaler (Ventolin HFA) clonazepam 0.5 mg tablet (Klonopin) 1 mg PO DAILY PRN 04/19/25 05/06/25 escitalopram oxalate 10 mg tablet 10 mg PO DAILY 04/19/25 05/06/25 semaglutide (weight loss) 0.5 0.5 mg subcut QWEEK 04/19/25 05/06/25 mg/0.5 mL subcutaneous pen injector (Wegovy) zolpidem 10 mg tablet 10 mg PO QHS PRN 04/19/25 05/06/25 Allergies Allergy/AdvReac Type Severity Reaction Status Date / Time No Known Allergies Allergy Verified 08/07/24 15:56 General Stated Complaint: GenMedical SHAUNNA: 4 Review of Systems All systems reviewed & are unremarkable except as noted in HPI and below Exam Narrative Exam Narrative: GENERAL APPEARANCE: Well-nourished, non-toxic, awake and alert, atraumatic, no acute distress. SKIN: Warm, pink, dry, intact, without rashes/lesions/ulcerations. HEAD: Normocephalic, atraumatic, normal hair distribution for gender/age. EYES: Normal conjunctiva, no exudates on lids/lashes. ENT: Nares patent, no circumoral cyanosis, no facial swelling NECK: Supple, trachea midline, painless cervical ROM. LUNGS/CHEST: Non-labored respirations, normal A/P diameter, symmetrical expansion, no chest wall deformity HEART (CV/PV): No peripheral edema, no JVD. ABDOMEN: Soft, non-distended, no guarding. MSK: Normal ROM, no swelling/deformity to bilateral UEs or LEs, moving all extremities without weakness, no cyanosis, spine midline without tenderness, normal curvature. NEURO: Mental Status AAOx4 - alert to person, place, time, events No facial droop, no forehead involvement, questionable mild dysmetria with FNF bilat symmetric Motor: No focal weakness - strength 5/5 in bilateral UEs and LEs, proximal and distal, symmetric. Sensory: sensation intact to light touch globally. Gait normal: patient ambulated without ataxia into ED room, difficulty walking the line heel-toe PSYCH: euthymic, cooperative, pleasant, appropriate speech Course Vital Signs Vital signs: Vital Signs Temperature 36.6 C 05/06/25 16:26 Pulse 115 H 05/06/25 16:26 Respiratory Rate 16 05/06/25 16:26 Blood Pressure 133/83 05/06/25 16:26 Pulse Oximetry 98 05/06/25 16:26 Temperature 36.6 C 05/06/25 16:26 Pulse 116 H 05/06/25 16:42 Respiratory Rate 20 05/06/25 16:42 Respiratory Effort Normal, Non-Labored 05/06/25 16:46 Respiratory Depth Normal 05/06/25 16:46 Respiratory Pattern Normal 05/06/25 16:46 Blood Pressure 140/91 H 05/06/25 16:42 Blood Pressure Mean 107 05/06/25 16:42 Pulse Oximetry 95 05/06/25 16:42 Oxygen Delivery Method Room Air 05/06/25 16:42 Oxygen Flow Rate 0 05/06/25 16:42 Pain Level 0 05/06/25 16:26 Medical Decision Making This dictation utilizes [id number] dictation software and may contain unedited grammatical errors. 45 year-old male presents to ED today by POV/ambulating with a chief complaint of altered coordination, not acting himself per family with onset around 1330. Patient has history of ruptured cerebral aneurysm with coil. Patient states he has started a new anxiety medication a couple weeks ago, and was having an acute panic attack today around 1200- accidentally took a zolpidem when he meant to take his PRN ativan, but then took an ativan as well. Quality described as was having some gait abnormality, and it seemed like he was intoxicated but has had no alcohol today, no radiation to slurred speech, visual changes, motor weakness, fever, headache. Severity is described as significant per family. Palliating factors include nothing specific. Provoking factors include improved with time since 1330. Patients' medical history: Ruptured cerebral aneurysm, severe anxiety, insomnia, hypertension, panic disorder. Family and social history: Lives at home with his , states he has been drinking somewhat more than usual in recent past, no illicit substance use. Pertinent exam findings / vital signs include some wobbling with [id number] suggestive of mild dysmetria, some difficulty ambulating with heel-to-toe walking the line, otherwise no focal deficits, alert and oriented, sensation intact globally, benign cardiopulmonary exam. Differential / pathologies of concern include CVA, ICH, medication side effects of over sedation. Diagnostic studies of: -CBC, CMP, ammonia, serial troponin, magnesium, UA, UDS, serial EKGs due to anxiety and tachycardia, CT head without, CTA brain and neck. - CBC benign - CMP benign - Ammonia WNL - Serial trop's negative - Magnesium mildly low at 1.6, repleted IV - UA benign - UDS negative - EKG's sinus tachycardia without ischemic changes - CT Head shows no acute bleeding, artifact from coil - CTA Brain & Neck shows no acute stroke Interventions of: -2gm IV Magnesium, TeleNeuro Consult. ED Course/Assessment/Plan: 45-year-old male who had sob confusion and coordination difficulty onset around 1330 today, he did have some anxiety and stress earlier than this and accidentally took zolpidem and Ativan simultaneously, he has a questionable slight balance issues but no ataxia on neuroexam with heel-to-toe walking midline, some wobbly finger movements with [id number] that could be not related to CVA. Otherwise his exam was completely normal, labs showed no severe derangements he had mild hypomagnesemia which was repleted. Teleneuro believes there to be no evidence of any stroke and that this was combination of anxiety and panic with his overmedicated state and recommend that he be discharged as long as he is comfortable with this plan, they do not recommend admission for MRI. Findings not consistent with CVA, ICH, persistent deficits. Disposition of Change in Mental State. Patient verbalized understanding of the plan and return to ED criteria and engaged in shared decision making. Medical Records Medical records reviewed: Yes I reviewed the patient's medical records. Imaging Data Radiologic Study: Attestation: I personally reviewed and interpreted this imaging study as follows: Imaging: CT Scan Radiologist's impression: EXAM: CT HEAD WO CLINICAL HISTORY: altered mentation. TECHNIQUE: Imaging Protocol: Axial computed tomography images with coronal and sagittal reformatted images were created and reviewed COMPARISON: CT CT BRAIN CTA from 09/07/[address] HEAD WO from 09/07/2023 FINDINGS: There are no skull fractures. There is no fluid in the visualized paranasal sinuses and mastoid air cells.. There is presentlyx no evidence of intracranial hemorrhage, as was evident on prior CT scans. However, there is a metallic density in the brain causing abundant streak artifact, this measuring 9 x 7.5 mm located left of center lateral to the midbrain. This is probably from prior interventional treatment. Size of the ventricles is unchanged and there is no blood within the ventricular system nor within the basal cisterns. IMPRESSION: No acute intracranial findings on this noninfused CT scan of the brain. Metallic density in left side of the brain is most probably related to prior interventional treatment for ruptured aneurysm which was the etiology of the previous brain hemorrhage seen on 09/07/2023 CT scan. Report called by myself to ER provider 05/06/2025 at 4:55 p.m. Radiologic Study #2: Attestation: I personally reviewed and interpreted this imaging study as follows: Imaging: CT Scan Radiologist's impression: EXAM: CT BRAIN NECK CTA CLINICAL HISTORY: dysmetria, gait instability. TECHNIQUE: Imaging Protocol: Axial CT angiography was performed with multi-slice acquisition and multi-planar and/or 3D reconstructions. CONTRAST MATERIAL: Intravenous: Omnipaque 350 Contrast volume:structured data in ml COMPARISON: CT CT HEAD WO from 05/06/2025 FINDINGS: CTA Neck W: Aortic arch anatomy: The aortic arch anatomy is conventional and there is no significant stenosis at the origin of the great vessels off of the aortic arch. No intimal flap evident. Anterior circulation: Both common carotid arteries ascend with normal luminal diameters. At the level the carotid bulbs and proximal internal carotid arteries there is minimal plaque without hemodynamically significant stenosis evident. Posterior circulation: Both vertebral arteries originate in conventional fashion off of the subclavian arteries and there is no obvious stenosis at the origin of the vertebral arteries. Both vertebral arteries exhibit normal luminal diameters within the foramen transversarium. Both vertebral arteries contribute to the formation of the basilar artery at the skull base. CTA Brain W: Anterior circulation: Both internal carotid arteries are patent in the skull base-carotid canals as well as within the cavernous sinuses. The supraclinoid aspects of the ICAs are patent. Both A1 segments are patent as are the anterior cerebral arteries and there is no evidence of aneurysm at the level of the anterior communicating artery. Both middle cerebral arteries are patent with no evidence of significant stenosis nor intraluminal thrombus. There also no aneurysms of these vessels. Posterior circulation: The basilar artery ascends in the midline. Distally it gives off patent bilateral superior cerebellar arteries. Above this level basilar artery terminates with a patent right posterior cerebral artery. The left posterior cerebral artery is patent approximately but not opacified distal to this where the metallic density-probable embolization coils are located. There is no evidence of aneurysm at the tip of the basilar artery nor elsewhere in the [id number]-ma-Wuznrb. CT BRAIN: There is no evidence of intracranial hemorrhage, mass effect, or shift of midline structures. There are no extra-axial fluid collections. Ventricles are not enlarged or shifted. There are no ring enhancing lesions in the brain and no abnormal meningeal enhancement. IMPRESSION: 1. Patent carotid arteries in the neck. No hemodynamically significant stenosis. No dissection 2. Patent vertebral arteries. No stenosis. No dissection 3. Patent intracranial anterior circulation. In the posterior circulation the left posterior cerebral artery appears occluded a few cm distal to its origin and this is most probably by the metallic artifact/neurointerventional material. Lab Data Lab results reviewed: Yes I reviewed the patient's lab results. Labs: Laboratory Tests Range/Units 05/06/25 05/06/25 05/06/25 17:05 17:12 17:20 WBC (4.4-10.8) 10^3/uL 5.54 RBC (4.36-5.78) 10^6/uL 4.77 Hgb (13.5-17.5) g/dL 15.2 Hct (40.0-50.0) % 44.4 MCV (80-95) fL 93 MCH (27.0-33.0) pg 31.9 MCHC (32.0-36.0) % 34.2 RDW (11.8-14.1) % 12.4 Plt Count (130-400) 10^3/uL 152 MPV (8.0-11.0) fL 8.1 Immature Gran % % 0.4 Neutrophils % % 86.3 Lymphocytes % % 9.0 Monocytes % % 3.8 Eosinophils % % 0.0 Basophils % % 0.5 Nucleated RBC % (0.0-0.3) % 0.0 Absolute Neutrophils (1.2-6.7) 10^3/uL 4.78 Absolute Lymphocytes (1.2-3.4) 10^3/uL 0.50 L Absolute Monocytes (0.1-0.8) 10^3/uL 0.21 Absolute Eosinophils (0.0-0.7) 10^3/uL 0.00 Absolute Basophils (0.0-0.2) 10^3/uL 0.03 Sodium (136-145) mmol/L 136 Potassium (3.5-5.1) mmol/L 3.9 Chloride (98-107) mmol/L 96 L Carbon Dioxide (21.0-32.0) mmol/L 27.2 Anion Gap (3-11) mmol/L 12.8 H BUN (7-18) mg/dL 9 Creatinine (0.70-1.30) mg/dL 0.7 Est GFR (CKD-EPI 2020) (mL/min/1.73m2) 115.80 Glucose (74-106) mg/dL 202 H Calcium (8.5-10.1) mg/dL 9.2 Magnesium (1.8-2.4) mg/dL 1.6 L Total Bilirubin (0.2-1.0) mg/dL 0.5 AST (15-37) U/L 30 ALT (16-63) U/L 38 Alkaline Phosphatase (46-116) U/L 48 Ammonia (11-32) umol/L 18 Troponin I (<or=76) ng/L 4 Total Protein (6.4-8.2) g/dL 8.4 H Albumin (3.4-5.0) g/dL 4.7 TSH (0.36-3.74) uIU/mL 1.49 Urine Color (Yellow) Yellow Urine Clarity (Clear) Clear Urine pH (5-8) 5.5 Ur Specific Thorpe (1.005-1.025) >= 1.030 H Urine Protein (Neg-Trace) mg/dL Negative Urine Ketones (Negative) mg/dL 40 H Urine Blood (Negative) Small H Urine Nitrite (Negative) Negative Urine Bilirubin (Negative) Negative Urine Urobilinogen (Up to 0.2) mg/dL 0.2 Ur Leukocyte Esterase (Negative) Negative Urine RBC (0-2) HPF 5-10 H Urine WBC (0-5) HPF Negative Ur Epithelial Cells (Negative) HPF Negative Urine Crystals (Negative) HPF Negative Urine Bacteria (Negative) HPF Negative Urine Casts (Negative) LPF Negative Urine Mucus (Negative) Moderate Ur Culture Indicated? No Urine Glucose (Negative) mg/dL 500 H Urine Opiates Screen (Negative) Negative Urine Methadone Screen (Negative) Negative Ur Barbiturates Screen (Negative) Negative Ur Tricyclics Screen (Negative) Negative Ur Amphetamines Screen (Negative) Negative U Benzodiazepines Scrn (Negative) Negative Urine Cocaine Screen (Negative) Negative Ur THC Screen (Negative) Negative Range/Units 05/06/25 18:02 WBC (4.4-10.8) 10^3/uL RBC (4.36-5.78) 10^6/uL Hgb (13.5-17.5) g/dL Hct (40.0-50.0) % MCV (80-95) fL MCH (27.0-33.0) pg MCHC (32.0-36.0) % RDW (11.8-14.1) % Plt Count (130-400) 10^3/uL MPV (8.0-11.0) fL Immature Gran % % Neutrophils % % Lymphocytes % % Monocytes % % Eosinophils % % Basophils % % Nucleated RBC % (0.0-0.3) % Absolute Neutrophils (1.2-6.7) 10^3/uL Absolute Lymphocytes (1.2-3.4) 10^3/uL Absolute Monocytes (0.1-0.8) 10^3/uL Absolute Eosinophils (0.0-0.7) 10^3/uL Absolute Basophils (0.0-0.2) 10^3/uL Sodium (136-145) mmol/L Potassium (3.5-5.1) mmol/L Chloride (98-107) mmol/L Carbon Dioxide (21.0-32.0) mmol/L Anion Gap (3-11) mmol/L BUN (7-18) mg/dL Creatinine (0.70-1.30) mg/dL Est GFR (CKD-EPI 2020) (mL/min/1.73m2) Glucose (74-106) mg/dL Calcium (8.5-10.1) mg/dL Magnesium (1.8-2.4) mg/dL Total Bilirubin (0.2-1.0) mg/dL AST (15-37) U/L ALT (16-63) U/L Alkaline Phosphatase (46-116) U/L Ammonia (11-32) umol/L Troponin I (<or=76) ng/L < 4 Total Protein (6.4-8.2) g/dL Albumin (3.4-5.0) g/dL TSH (0.36-3.74) uIU/mL Urine Color (Yellow) Urine Clarity (Clear) Urine pH (5-8) Ur Specific Thorpe (1.005-1.025) Urine Protein (Neg-Trace) mg/dL Urine Ketones (Negative) mg/dL Urine Blood (Negative) Urine Nitrite (Negative) Urine Bilirubin (Negative) Urine Urobilinogen (Up to 0.2) mg/dL Ur Leukocyte Esterase (Negative) Urine RBC (0-2) HPF Urine WBC (0-5) HPF Ur Epithelial Cells (Negative) HPF Urine Crystals (Negative) HPF Urine Bacteria (Negative) HPF Urine Casts (Negative) LPF Urine Mucus (Negative) Ur Culture Indicated? Urine Glucose (Negative) mg/dL Urine Opiates Screen (Negative) Urine Methadone Screen (Negative) Ur Barbiturates Screen (Negative) Ur Tricyclics Screen (Negative) Ur Amphetamines Screen (Negative) U Benzodiazepines Scrn (Negative) Urine Cocaine Screen (Negative) Ur THC Screen (Negative) PFSH All Active Problems (Updated 05/06/25 @ 19:13 by KAYLA Suárez) Change in mental status (Acute) Chronic pain of right upper extremity (Acute) Insomnia (Acute) Overweight (Acute) Essential hypertension (Acute) GERD (gastroesophageal reflux disease) (Chronic) Panic disorder (Acute) Anxiety (Chronic) Medical History (Updated 05/06/25 @ 19:13 by KAYLA Suárez) Family history of celiac disease Supraspinatus tendonitis Ruptured cerebral aneurysm Social History Smoking/Tobacco Use Status: Never Smoking risk assessment performed?: Yes Alcohol Intake: current Alcohol Intake frequency: a few times a week Drug use: Rarely Substance use type: marijuana Housing: house Do you feel safe at home: Yes Do you feel safe in your relationship?: Yes
--- NOTE | 2025-05-06 17:15 | RT.EKG_ITS ---
APPROVED REPORT Exam: Resting ECG Reason for Exam: tachycardia Patient Location: E HR:123 bpm ECG Measurements Heart Rate 123 AXIS VA 145 P 39 QRSd 98 QRS -17 QT 310 T 24 QTc 444 Conclusion Sinus tachycardia...rate> 99 No Occlusion [place]
[2025-05-06 17:21] LABS: Abs Immature Grans 0.02 10^3/uL (0.0-0.06); HCT 44.4 % (40.0-50.0); HGB 15.2 g/dL (13.5-17.5); Immature Grans % 0.4 %; MCH 31.9 pg (27.0-33.0); MCHC 34.2 % (32.0-36.0); MCV 93 fL (80-95); MPV 8.1 fL (8.0-11.0); Platelet Count 152 10^3/uL (130-400); RBC 4.77 10^6/uL (4.36-5.78); RDW 12.4 % (11.8-14.1); RDW-SD 42.5 fL; WBC 5.54 10^3/uL (4.4-10.8)
[2025-05-06 17:24] LABS: Glucose 500 mg/dL (Negative)
[2025-05-06] MEDS: Normal Saline - Diluent 50 ML VIAL IJ ×2 (17:24→17:51)
[2025-05-06] MEDS: Omnipaque 350 MG/ML 100 ML BTL IJ ×2 (17:24→17:52)
[2025-05-06 17:31] LABS: C & S Indicated? No; WBC Negative HPF (0-5)
[2025-05-06 17:47] LABS: ALT 38 U/L (16-63); AST 30 U/L (15-37); Albumin 4.7 g/dL (3.4-5.0); Alkaline Phosphatase 48 U/L (46-116); Anion Gap 12.8 mmol/L (3-11); BUN 9 mg/dL (7-18); Bilirubin, Total 0.5 mg/dL (0.2-1.0); CO2 27.2 mmol/L (21.0-32.0); Calcium 9.2 mg/dL (8.5-10.1); Chloride 96 mmol/L (98-107); Estimated GFR 115.80 (mL/min/1.73m2); Glucose 202 mg/dL (74-106); Magnesium 1.6 mg/dL (1.8-2.4); Potassium 3.9 mmol/L (3.5-5.1); Sodium 136 mmol/L (136-145); TSH (W/Ref FT4) 1.49 uIU/mL (0.36-3.74); Total Protein 8.4 g/dL (6.4-8.2); Troponin I 4 ng/L (<or=76)
[2025-05-06 17:56] LABS: Ammonia 18 umol/L (11-32)
[2025-05-06] MEDS: MAGNESIUM SULFATE 2 GM/50 ML BAG IV_INF (18:25)
[2025-05-06 18:33] LABS: Troponin I < 4 ng/L (<or=76)
[2025-05-06 19:03] LABS: Cannabinoids THC Negative (Negative); METHADONE URINE SCREEN Negative (Negative)
== END 2025-05-06 19:42 | disposition home or self-care (01) ==
PROVIDERS: Emergency Provider Physician Assistant; PCP Family Medicine
DX: R41.82 Altered mental status, unspecified (principal); Z86.79 Personal history of other diseases of the circulatory system
CPT/HCPCS: 99284 ×2; 36415; 70496; 70498; 80053; 80307; 93005; 96365; 70450; 81003; 81015; 82140; 83735; 84443; 84484; 85025; 93010; J3475; J3490

== ENCOUNTER 2025-07-18 11:00 | Outpatient (CLI) | payer BC, SELFPAY ==
--- NOTE | 2025-07-18 08:45 | DI.RAD_ITS ---
Exam(s) XR SHOULDER RT COMPLETE 2+V EXAM: XR SHOULDER RT COMPLETE 2+V CLINICAL HISTORY: RIGHT SHOULDER PAIN. TECHNIQUE: 2D digital imaging was performed of the right shoulder. Two images were obtained. Grashey and axillary views were obtained. COMPARISON: No exams were available for comparison FINDINGS: BONES: No acute fracture is present. No bony destructive lesion is seen. JOINTS: No dislocation present. There is a small osteophyte at the inferior right humeral head. There are mild degenerative changes seen at the acromioclavicular joint. SOFT TISSUE: Normal. IMPRESSION: Mild degenerative changes of the right shoulder. DATA REPOSITORY: RADIATION DOSE DELIVERED:
== END 2025-07-18 11:01 | disposition home or self-care (01) ==
LOC: DIORS 11:00
PROVIDERS: PCP Family Medicine; Visit Provider Student in an Organized Health Care Education/Training Program
DX: M79.601 Pain in right arm (principal); G89.29 Other chronic pain; M19.011 Primary osteoarthritis, right shoulder
CPT/HCPCS: 73030

== ENCOUNTER 2025-08-09 02:17 | Outpatient (CLI) | payer BC, SELFPAY ==
--- NOTE | 2025-08-09 06:45 | DI.MRI_ITS ---
Exam(s) MR UPPER JOINT RT WO EXAM: MR UPPER JOINT RT WO CLINICAL HISTORY: R SHOULDER PAIN,rt rotator cuff tear,m75.101,m79.601,g89.29. TECHNIQUE: Multiplanar multisequence MRI was performed. COMPARISON: CR XR SHOULDER RT COMPLETE 2+V from 07/18/2025 FINDINGS: BONES: There is no fracture identified. There is marrow edema seen in the distal clavicle and the acromion. There is mild edema seen in the soft tissues around the acromioclavicular joint. The alignment of the acromioclavicular joint is well maintained. JOINTS: The acromioclavicular joint is normal. The glenohumeral joint is normal. TENDONS: Supraspinatus: Unremarkable. Infraspinatus: Unremarkable. Subscapularis: Unremarkable. Te[place]: Unremarkable. Biceps and [place]: Unremarkable. MUSCLES: There is very mild edema seen in the lateral aspect of the deltoid. There is also mild edema seen in the overlying subcutaneous fat. GLENOID LABRUM: There is hyperintense signal seen in the posterior labrum suspicious for tear. SOFT TISSUES: Unremarkable. LIGAMENTS: Unremarkable. OTHER: Subacromial and subdeltoid bursae are unremarkable. IMPRESSION: 1. There is no evidence of a rotator cuff tear. 2. Marrow edema seen in the acromion and distal clavicle. While degenerative change should be considered. Overlying edema in the deltoid muscle subcutaneous tissues and edema around the acromioclavicular joint raises a question of bone contusions. AC ligament sprain should be considered. 3. Hyperintense signal seen posteriorly in the labrum suspicious for tear. DATA REPOSITORY:
== END 2025-08-09 02:37 ==
LOC: DI 02:17
PROVIDERS: PCP Family Medicine; Visit Provider Student in an Organized Health Care Education/Training Program
DX: M75.101 Unspecified rotator cuff tear or rupture of right shoulder, not specified as traumatic (principal); M79.601 Pain in right arm; G89.29 Other chronic pain
CPT/HCPCS: 73221

== ENCOUNTER 2025-09-11 11:01 | Day surgery (SDC) | payer BC, SELFPAY ==
[2025-09-11 11:10] VITALS: BP 129/94; PULSE 70; RESP 16; TEMP 36.2; O2SAT 97
--- NOTE | 2025-09-11 11:32 | W.ANESPRE ---
General Info Date of Service Date Performed: 09/11/25 Height: 5 ft 9 in Weight: 74.8 kg Body Mass Index (BMI): 24.3 Surgical Procedure: Operation Date: 09/11/25 11:50 Proposed Procedure Side Surgeon p Colonoscopy/Gastroscopy Rosa Oconnor MD Meds Allergies and Home Medications Allergies Allergy/AdvReac Type Severity Reaction Status Date / Time No Known Allergies Allergy Verified 09/11/25 11:21 Home Medication Medication Instructions Recorded omeprazole 20 mg capsule,delayed 20 mg PO DAILY 09/07/23 release amlodipine 5 mg tablet 5 mg PO DAILY 05/23/24 lisinopril 40 mg tablet 40 mg PO DAILY 05/23/24 albuterol sulfate 90 mcg/actuation 2 puff inhalation Q6H PRN 04/19/25 aerosol inhaler (Ventolin HFA) clonazepam 0.5 mg tablet (Klonopin) 1 mg PO DAILY PRN 04/19/25 escitalopram oxalate 10 mg tablet 10 mg PO DAILY 04/19/25 zolpidem 10 mg tablet 10 mg PO QHS PRN 04/19/25 bisacodyl 5 mg tablet,delayed 5 mg PO ONCE colonscopy bowel prep 05/10/25 release (Dulcolax (bisacodyl)) #4 tabs multivitamin 1 tab PO DAILY 05/10/25 polyethylene glycol 3350 17 238 g PO ONCE colonoscopy prep 05/10/25 gram/dose oral powder #238 grams aspirin 81 mg tablet,delayed 81 mg PO DAILY 08/15/25 release (Adult Low Dose Aspirin) tirzepatide (weight loss) 5 mg/0.5 5 mg subcut ONCE 09/08/25 mL subcutaneous pen injector (Zepbound) Current Visit Medications: Current Medications Generic Name Dose Route Start Last Admin Trade Name Freq PRN Reason Stop Dose Admin Ringer's Solution 1,000 mls @ 80 mls/hr 09/11/25 06:00 IV 09/11/25 23:59 INFUSION CHRISTINA IV Miscellaneous Supplies 1 each 09/11/25 06:00 Iv Access IV 09/11/25 23:59 DIRECTED CHRISTINA Sodium Biphosphate/Sodium Phosphate 133 ml 09/11/25 06:00 Na Phosphate Enema-Adult 133 Ml Btl SC 09/11/25 23:59 DIRECTED PRN Sodium Chloride 0 ml 09/11/25 06:00 Normal Saline Flush 10 Ml Syr IV 09/11/25 23:59 PRN PRN Sodium Chloride 0 ml 09/11/25 06:00 Normal Saline 10 Ml Vial IJ 09/11/25 23:59 DIRECTED PRN Sterile Water 0 ml 09/11/25 06:00 Water,Injection,Sterile 10 Ml Vial IJ 09/11/25 23:59 DIRECTED PRN PFSH Active Problems Active Problems: Problem Status Onset Code 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 Pt. states [place] [facility] [place] Last f/u 05/2025-Note in system Tobacco Smoking/Tobacco Use Status: Never Passive smoking exposure: No Alcohol Alcohol Intake: current Alcohol intake frequency: holidays/special occasions only Substance Use Substance use: Never Substance use type: does not use Vital Signs and Lab Results Vital Signs Most Recent Vital Signs in EMR: Most Recent Vital Signs Temp Pulse Resp BP Pulse Ox 36.2 C L 70 16 129/94 H 97 09/11/25 11:10 09/11/25 11:10 09/11/25 11:10 09/11/25 11:10 09/11/25 11:10 Imaging and Studies Imaging and Studies Study information below may be from another EMR and interpreted by another provider. Please see original notes in EMR for more complete details. EKG Summary: Conclusion Sinus tachycardia...rate> 99 Anesthesia Assessment and Plan Anesthesia History Personal History: No History of Anesthesia Complications Family History: No Family History of Anesthesia Complications Exercise Tolerance Exercise Tolerance: Metabolic Equivalents>4 Pertinent Negatives Pertinent Negatives: No Symptoms of GERD (reccurent GERD), No Major Cardiovascular Symptoms or Complaints and No Major Pulmonary Symptoms or Complaints (uses albuterol 3x a year when sick ) Cardiac & Pulmonary Exam Cardiac Exam: Normal S1/S2 Heart Sounds Pulmonary Exam: Clear Bilateral Breath Sounds Implantable Cardiac Device Does patient have a Pacemaker or an ICD?: No Airway Exam Known Difficult Airway: No Mallampati Class: 1 Mouth Opening: Normal (> 3cm) Thyromental Distance: Greater than 3 cm Neck Range of Motion: Full ROM Neck Circumference: Normal Teeth Condition: Normal Dentition ASA Classification ASA Score: ASA 2 Emergency Case?: No NPO Status NPO Status: NPO Clears >2 hours, Solids >8 hours Anesthesia Plan Resuscitation Status: Full Code Anesthesia Technique: General Anesthesia Airway Planned: Natural Airway Monitors Used: Standard Monitors Preoperative Comments:: 45yo M referred for egd/colonoscopy for refractory reflux symptoms and screening.
[2025-09-11] MEDS: Lactated Ringers 1,000 ML 80 ML IV (11:37)
--- NOTE | 2025-09-11 11:52 | W.PM.HP.N ---
Date of service: 09/11/25 Time of Service: 11:52 Assessment and Plan Assessment and plan (1) GERD (gastroesophageal reflux disease): Status: Chronic Assessment and plan: EGD today for evaluation for complications of suboptimally controlled GERD, hiatal hernia, and H pylori. procedure reviewed at length. consent signed. (2) Screening for colorectal cancer: Status: Acute Assessment and plan: screening colonoscopy in average risk patient indicated. procedure discussed at length, risks, benefits, alternatives and expectations. proceed as planned History of Present Illness History of Present Illness Chief Complaint: egd and colonoscopy Narrative: 45yo M presents for elective endoscopy. HPI from office visit in may is as follows for reference: 45yo M referred for egd/colonoscopy for refractory refkux symptoms and screening. He has been on OTC omeprazle for relief of heartburn symptoms for years. when he doesnt take it, the heartburn symptoms recur. he had uncontrolled and more sveere heartburn for years before startin omeprazole. He does not presently have dysphagia or epigastric pain. He does get refractory symptoms periodically despite being on omeprazole. two times a month or so he rhoda experience heartburn. Initial screening colonoscopy. No personal or fam hx of colorectal cancer. no crohns or UC. no blood in stool, no melena. no unplanned weight loss, no change in bowel habits. No anemia. feels well on a regular basis. no previous [place]/CVA, no copd or asthma. 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 Pt. states he follows up with neuro at [facility] [place] annually. Last f/u 05/2025-Note in system Social History Smoking/Tobacco Use Status: Never Smoking risk assessment performed?: Yes Alcohol Intake: current Alcohol Intake frequency: holidays/special occasions only Drug use: Never Substance use type: does not use Housing: house Do you feel safe at home: Yes Do you feel safe in your relationship?: Yes Meds Allergies and Home Medications Allergies Allergy/AdvReac Type Severity Reaction Status Date / Time No Known Allergies Allergy Verified 09/11/25 11:21 Home Medications Medication Instructions Recorded Confirmed Type omeprazole 20 mg capsule,delayed 20 mg PO DAILY 09/07/23 09/11/25 History release amlodipine 5 mg tablet 5 mg PO DAILY 05/23/24 09/11/25 History lisinopril 40 mg tablet 40 mg PO DAILY 05/23/24 09/11/25 History albuterol sulfate 90 mcg/actuation 2 puff inhalation Q6H PRN 04/19/25 09/11/25 History aerosol inhaler (Ventolin HFA) clonazepam 0.5 mg tablet (Klonopin) 1 mg PO DAILY PRN 04/19/25 09/11/25 History escitalopram oxalate 10 mg tablet 10 mg PO DAILY 04/19/25 09/11/25 History zolpidem 10 mg tablet 10 mg PO QHS PRN 04/19/25 09/11/25 History bisacodyl 5 mg tablet,delayed 5 mg PO ONCE colonscopy bowel prep 05/10/25 09/11/25 Rx release (Dulcolax (bisacodyl)) #4 tabs multivitamin 1 tab PO DAILY 05/10/25 09/11/25 History polyethylene glycol 3350 17 238 g PO ONCE colonoscopy prep 05/10/25 09/11/25 Rx gram/dose oral powder #238 grams aspirin 81 mg tablet,delayed 81 mg PO DAILY 08/15/25 09/08/25 History release (Adult Low Dose Aspirin) tirzepatide (weight loss) 5 mg/0.5 5 mg subcut ONCE 09/08/25 09/08/25 History mL subcutaneous pen injector (Zepbound) Exam Narrative Exam Narrative: awake, NAD eomi, MMM midline trachea, neck is symmetric PULM: normal resp effort, equal chest rise with respiration, no wheezing audible CARDIAC: normal PMI, no jvd, regular rate, normal perfusion abdomen is nondistended. extremities are without deformity, normal movement of all four extremities speech is clear and coherent mood and affect are congruent, no focal neurological deficits skin without rash Results Last Vital Signs Temp 97.2 F L 09/11/25 11:10 Pulse 70 09/11/25 11:10 Resp 16 09/11/25 11:10 BP 129/94 H 09/11/25 11:10 Pulse Ox 97 09/11/25 11:10 Time Spent Time spent with Patient: <40 minutes Time was spent: preparing to see the patient(eg.review tests), referring, communicating with other health day care worker and counseling the patient
[2025-09-11 12:00] VITALS: BMI 24.3
--- NOTE | 2025-09-11 12:15 | BOWEL_PTH ---
PATIENT: Sachin Haq LOC: [facility] U#:[id number] AGE/SX: 45/M ROOM: RE09/11/[address]: Rosa Oconnor MD : 1980 BED: DIS: 09/11/2025 SPEC #: [id number] RECD: 09/11/25 18:11 STATUS: [facility] #: [id number] KAYLAH: 09/11/25 12:[address]: Rosa Oconnor DEPT: Surgical Specimen RECD BY: Bernice Yao ENTERED: 09/11/25 18:13 SP TYPE: Bowel OTHR DR: Rosi Valencia Tissues: 1 - STOMACH BIOPSY 2 - STOMACH BIOPSY 3 - BIOPSY BOWEL Procedures: GROSS AND MICRO LEVEL 4 Comments: [id number]
--- NOTE | 2025-09-11 12:20 | ENDO_ITS ---
Date of service: 09/11/25 Time of Service: 12:20 Endoscopy Report DATE OF PROCEDURE: 09/11/25 PRE-OP DIAGNOSIS: chronic GERD POST-OP DIAGNOSIS: same (fundus polyp) PROCEDURE: EGD with biopsy SURGEON: Rosa Oconnor ANESTHESIA TYPE: General:No Airway ESTIMATED BLOOD LOSS: 2 PATHOLOGY: other (1. antrum biopsy. 2. fundus polyp) COMPLICATIONS: None DISPOSITION: same day PROCEDURE DESCRIPTION: Lubricated endoscope was passed through a bite block into the second portion of the duodenum. The endoscope was withdrawn and the duodenum stomach and esophageal mucosa examined. The duodenum appeared normal. There is no inflammation or ulceration or erosion. The antrum appears normal. The fundus appears normal. Fundus polyp 5mm pedunculated excised with cold forceps. The cardia appears normal. Another benign appearing fundus polyp seen, surgical device sales representative biopsy already obtained so it was left alone. The endoscope was retroflexed and there is no evidence of hiatal hernia. GE junction is at 39cm from the incisors. The distal esophagus is normal without ulceration, varices or candidiasis. The Z-line is regular and there is no evidence of Bojorquez's esophagus. Remainder of the esophagus appears normal Cold forceps biopsies obtained from antrum for microscopic evaluation for H. pylori. The upper digestive system was desufflated and the endoscope withdrawn. No complications. Assessment and plan: GERD fundic gland polyp of stomach No findings to suggest severe or uncontrolled GERD. No evidence of Barretts esophagus, no significant inflammatory change. Continue to manage symptoms. No need for repeat EGD. Fundus polyp appears to be benign fundic gland polyp, will follow up pathology report to ensure it is as expected.
--- NOTE | 2025-09-11 12:39 | W.COLOREPORT ---
Date of service: 09/11/25 Time of Service: 12:39 Colonoscopy Report Date of procedure: 09/11/25 Pre-op diagnosis general: Screening for colorectal cancer Post-op diagnosis procedure note: same (1. diverticulosis of colon. 2. rectum polyp) Procedure: Colonoscopy with cold forceps polypectomy Surgeon: Rosa Oconnor Anesthesia Type: General:No Airway Estimated blood loss (mL): 1 Pathology: other (rectum polyp) Complications: None Indications: screening for colorectal cancer Prep: Miralax/Dulcolax (Good) Procedure Description: Informed consent was obtained and the patient was taken to the procedure area. The patient was placed in left lateral decubitus position on the procedure table. Timeout was performed. Anesthesia was induced. A lubricated colonoscope was inserted through the anus and passed to the cecum. The cecum was identified by the ileocecal valve and the appendiceal orifice. The scope was then slowly withdrawn and the colonic and rectal mucosa examined. TI intubated and examined. It appears normal. Rectum with a 3mm sessile polyp excised with cold forceps. Mild small mouthed sigmoid diverticulosis was seen. The scope was retroflexed in the anorectal junction examined. Uncomplicated internal hemorrhoids present. Assessment and plan: Screening for colorectal cancer. Rectum polyp. sigmoid diverticulosis One rectum polyp seen and removed. Timing of next screening colonoscopy will be due in 10 years if this polyp is hyperplastic, 5 years if adenomatous.
[2025-09-11 12:43] VITALS: BP 121/80; PULSE 91; RESP 16; TEMP 36.3; O2SAT 97
--- NOTE | 2025-09-11 12:45 | W.PM.DSUDISC ---
Date of service: 09/11/25 Discharge Plan Disposition Patient Disposition: Home Condition: Stable Discharge Details Reason For Visit: EGD and colonoscopy Attending Provider: Rosa Oconnor Primary Care Provider: Rosi Valencia Home Meds and New Rx's Prescriptions: Continued amlodipine 5 mg tablet 5 mg PO DAILY lisinopril 40 mg tablet 40 mg PO DAILY aspirin [Adult Low Dose Aspirin] 81 mg tablet,delayed release (DR/EC) 81 mg PO DAILY multivitamin Tablet 1 tab PO DAILY clonazepam [Klonopin] 0.5 mg tablet 1 mg PO DAILY PRN albuterol sulfate [Ventolin HFA] 90 mcg/actuation HFA aerosol inhaler 2 puff inhalation Q6H PRN zolpidem 10 mg tablet 10 mg PO QHS PRN escitalopram oxalate 10 mg tablet 10 mg PO DAILY omeprazole 20 mg capsule,delayed release(DR/EC) 20 mg PO DAILY Zepbound 5 mg/0.5 mL pen injector 5 mg SUBCUT ONCE Discontinued bisacodyl [Dulcolax (bisacodyl)] 5 mg tablet,delayed release (DR/EC) 5 mg PO ONCE Qty: 4 0RF Rx Instructions: take per colonoscopy instructions polyethylene glycol 3350 17 gram/dose powder 238 g PO ONCE Qty: 238 0RF Rx Instructions: take per colonoscopy instructions Discharge Instructions Additional Instructions: EGD shows normal findings overall. No concerning sins of damage from your reflux. You may continue your current management plan. No need to repeat EGD unless symptoms change or worsen in the future. Small benign polyp seen and remoed from stomach. These are typically a result of taking medicines to block stomach acid. They are not precancerous. One rectum polyp seen and removed on colonoscopy. It was tiny and benign. Timing of next screening colonoscopy will be due in 10 years if this polyp is hyperplastic, 5 years if adenomatous. I will reach out by mail to let you know the results. Diverticulosis of the sigmoid colon noted, no diverticulitis (infection) present. Take a daily fiber supplement and eat a high fiber diet to prevent problems and progression of diverticulosis. Stand Alone Forms: Anesthesia Discharge Inst., DSU Post EGD Instructions, Colonoscopy Post Instructions, Press Eduarda (DSU), Portal Information Activity:: Activity as Tolerated Diet:: As Tolerated Discharge Orders Discharge Orders: Discharge Order (Routine); Ordered 09/11/25 Ordered By: Rosa Oconnor DS: Diagnosis Discharge Diagnosis (1) GERD (gastroesophageal reflux disease): Status: Chronic (2) Screening for colorectal cancer: Status: Acute (3) Rectal polyp: Status: Acute (4) Sigmoid diverticulosis: Status: Acute (5) Benign fundic gland polyps of stomach: Status: Acute
--- NOTE | 2025-09-11 13:05 | W.ANESPOSTOP ---
Postoperative Evaluation Date, Time and Location Date Performed: 09/11/25 Time Performed: 12:45 Patient Location: Day Surgery Unit Vital Signs Most Recent Imported Vital Signs: Most Recent Vital Signs Temp Pulse Resp BP Pulse Ox 36.3 C L 91 H 16 121/80 97 09/11/25 12:43 09/11/25 12:43 09/11/25 12:43 09/11/25 12:43 09/11/25 12:43 Pain Score Most Recent Pain Score: Most Recent Pain Score Pain Level 0 09/11/25 12:43 Assessment Mental Status: Awake (Alert & Oriented to Patient Baseline) Airway and Respiratory Function: Patent airway with normal (patient baseline) respiratory exam Cardiovascular Function: Hemodynamically Stable Hydration Status: Adequately Hydrated Nausea & Vomiting: No Nausea or Vomiting Pain: Pt. Denies Any Pain Peripheral Nerve Block: Patient did not receive a nerve block
[2025-09-11 13:12] VITALS: BP 113/91; PULSE 77; RESP 16; TEMP 36.3; O2SAT 99
== END 2025-09-11 13:17 | disposition home or self-care (01) ==
PROVIDERS: PCP Family Medicine; Visit Provider Surgery
PROC: (CPT 45380; principal; 2025-09-11 11:45)
DX: Z12.11 Encounter for screening for malignant neoplasm of colon (principal); Z12.12 Encounter for screening for malignant neoplasm of rectum; K21.9 Gastro-esophageal reflux disease without esophagitis; K62.1 Rectal polyp; K57.30 Diverticulosis of large intestine without perforation or abscess without bleeding; K31.7 Polyp of stomach and duodenum; K29.70 Gastritis, unspecified, without bleeding
CPT/HCPCS: 45380; 43239; 88305; J2003; J2704